=== PATIENT | male | born 1940 | race Caucasian/White ===

== ENCOUNTER → 2021-07-25 | Day surgery (SDC) | payer OTHER ==
[~2021-07-25] MED LIST: ASPIRIN81 MG PO; CLOPIDOGREL75 MG PO; CRESTOR40 MG PO; FAMOTIDINE40 MG PO; FEROSUL325 MG PO; FISH OIL; INSULIN 70/30 SQ; PROTONIX 40 MG40 M1 PO; VITAMIN D3 PO
== END | disposition home or self-care (01) ==
LOC: OR 08:07
DX: K31.A11 Gastric intestinal metaplasia without dysplasia, involving the antrum (principal); K29.61 Other gastritis with bleeding; K25.4 Chronic or unspecified gastric ulcer with hemorrhage; K21.00 Gastro-esophageal reflux disease with esophagitis, without bleeding; K22.2 Esophageal obstruction; K31.9 Disease of stomach and duodenum, unspecified; E78.5 Hyperlipidemia, unspecified; E11.9 Type 2 diabetes mellitus without complications; I10 Essential (primary) hypertension; F17.200 Nicotine dependence, unspecified, uncomplicated; D50.9 Iron deficiency anemia, unspecified; R63.4 Abnormal weight loss; Z68.22 Body mass index [BMI] 22.0-22.9, adult; Z79.82 Long term (current) use of aspirin; Z79.899 Other long term (current) drug therapy
CPT/HCPCS: 82962; J2704